=== PATIENT | male | born 1990 | race Hispanic/Latino ===

== ENCOUNTER 2020-02-17 00:16 | Emergency (ER) | payer SELFPAY ==
[2020-02-17 00:51] LABS: #Basophils 0.1 thou/uL (0.0-0.2); #Eosinphils 0.4 thou/uL (0.0-0.7); #Lymphocytes 2.6 thou/uL (1.20-3.40); #Monocytes 0.5 thou/uL (0.11-0.59); #Neutrophils 4.5 thou/uL (1.40-6.50); %Basophils 1.6 % (0.0-1.0); %Eosinophils 5.4 % (0.0-10.0); %Lymphocytes 31.7 % (21.0-51.0); %Monocytes 5.5 % (0.0-10.0); %Neutrophils 55.8 % (42.0-75.0); Hemoglobin 16.1 g/dL (14.0-18.0); Mean Corpuscular HGB CONC 34.9 g/dL (32.0-36.0); Mean Corpuscular Hemoglobin 32.8 pg (27.0-31.0); Mean Corpuscular Volume 93.9 fL (78.0-98.0); Mean Platelet Volume 7.2 fL (7.4-10.4); Platelet Count 235 thou/uL (130-400); RBC Distribution Width 11.2 % (11.5-14.5); Red Blood Cell (RBC) Count 4.93 mill/uL (4.70-6.10); White Blood Cell (WBC) Count 8.1 thou/uL (4.8-10.8)
[2020-02-17] MEDS ORDERED: Ibuprofen 200 MG TAB ONE (00:57)
[2020-02-17 01:10] LABS: Bacteria/HPF None Seen HPF (None Seen); Bilirubin Negative (Negative); Blood, Urine Trace (Negative); Clarity Clear (Clear); Glucose, Urine (Dipstick) Normal (Negative); Ketone, Urine Negative (Negative); Leukocyte Negative Leu/uL (Negative); Nitrite Negative (Negative); Protein, Urine (Dipstick) Negative (Neg-Trace); RBC/HPF 0-3 HPF (0-3); Specific Gravity, Urine 1.007 (1.002-1.036); Squamous Epithelial None Seen HPF (0-3); Urobilinogen Normal mg/dL (Less than 2); WBC/HPF None Seen HPF (0-3); pH, Urine 7.5 (5.0-9.0)
[2020-02-17 01:13] LABS: ALT (SGPT) 18 U/L (8-55); AST (SGOT) 16 U/L (5-34); Albumin 4.5 g/dL (3.5-5.0); Alkaline Phosphatase 81 U/L (40-110); Anion Gap 13 mmol/L (10-20); BUN (Urea Nitrogen) 10 mg/dL (8.9-20.6); Bilirubin, Total 0.6 mg/dL (0.2-1.2); Calc. Creatinine Clearance 0 mL/min (70-130); Calcium 9.4 mg/dL (7.8-10.44); Carbon Dioxide 27 mmol/L (22-29); Chloride 102 mmol/L (98-107); Estimated GFR-MDRD Greater than 90; Globulin 2.9 g/dL (2.4-3.5); Glucose 108 mg/dL (70-105); Lipase 21 U/L (8-78); Potassium 3.6 mmol/L (3.5-5.1); Protein, Total 7.4 g/dL (6.0-8.3); Sodium 138 mmol/L (136-145)
--- NOTE | 2020-02-17 07:18 | CT ---
PRELIMINARY REPORT/[facility]/EMERGENCY AFTER HOURS PROCEDURE EXAM: CT STONE PROTOCOL HISTORY: Pt is a 29 yo male with significant PMH who presents for RLQ pain x 3 days. Pain starts in h is flank and radiates to his groin. He has not had abdominal surgery in the past. Denies hematuria, dysuria but endorsed frequency. Denies N/V, diarrhea, constipation, RUQ pain, CVA tenderness, rash. H e did endorse PO intake. He has not tried anything for pain. He has never been diagnosed with nephrolithiasis in the past. COMPARISON: None FINDINGS: The lung bases are clear, without pleural effusion. No acute abnormality of the liver. The gallbladder is contracted. No acute abnormality of the spleen or pancreas. No adrenal nodules. No renal or ureteral stone. No hydronephrosis or hydroureter. No perinephric inflammatory change. Bladder is incompletely distended and fluid-filled. No bowel obstruction. The appendix is normal. No focal fluid collections or inflammatory changes within the abdomen or pelvis. No acute osseous normality. IMPRESSION: No acute intra-abdominal pathology. ELECTRONICALLY SIGNED BY: Jessi Connelly MD Feb 17, 2020 1:36:15 AM CDT This report is intended for review by the ordering physician only, in accordance of law. If you recei ve this report in error, please call [facility] at [phone]. FINAL REPORT Exam: Abdomen CT without contrast Pelvic CT without contrast HISTORY: Right flank pain, radiating to the groin. COMPARISON: None FINDINGS: Abdomen CT: Lung bases:Clear Heart size: Normal heart size Aorta: Normal caliber. Solid organs: Limited evaluation by the lack of IV contrast. Grossly no solid organ abnormality Lymph nodes: No gastrohepatic, retrocrural or periportal lymphadenopathy Gallbladder: Unremarkable. Gallbladder is contracted, likely due to nonfasting state Mesentery: No mass, lymphadenopathy, free air or free fluid Kidneys: Bilaterally, no hydronephrosis, nephrolithiasis or perinephric fat stranding. Bilateral uret ers have a normal caliber. No hydroureter, periureteral fat stranding or ureterolithiasis. Alimentary canal: Limited evaluation by the lack of oral contrast. No evidence of a small bowel obstr uction. Normal caliber appendix. Decompressed colon. Occasional diverticulum. No diverticulitis. CT PELVIS: No mass, adenopathy, free air or free fluid. Urinary bladder: Unremarkable. Osseous structures: No lytic or blastic lesions IMPRESSION: 1. This report is in agreement with initial report by [facility] 2. No evidence of obstructive uropathy. Transcribed Date/Time: 02/17/2020 7:33 AM
== END 2020-02-17 02:04 | disposition home or self-care (01) ==
LOC: ERS 00:16
DX: N20.0 Calculus of kidney (principal); F17.210 Nicotine dependence, cigarettes, uncomplicated
CPT/HCPCS: 36415; 74176; 80053; 81003; 81015; 83690; 85025